=== PATIENT | male | born 1955 | race Caucasian/White ===

== ENCOUNTER 2020-06-16 09:28 | Day surgery (SDC) | payer OTHER ==
[~2020-06-16] VITALS: Ht 185.4 cm; Wt 86.2 kg
[2020-06-16] MEDS ORDERED: fentaNYL citrate 0.05 MG/ML VIAL ONE (10:51)
[2020-06-16] MEDS: fentaNYL citrate 0.05 MG/ML VIAL IVP ONE (11:06)
[2020-06-16] MEDS: LIDOCAINE 2% 100 MG/5 ML UJET TP ONE (11:07)
== END 2020-06-16 13:40 | disposition home or self-care (01) ==
LOC: MDS 09:28 → MMU 09:30 → MDS 13:40
PROVIDERS: ATTEND Internal Medicine Gastroenterology
DX: R19.5 Other fecal abnormalities (principal); K52.9 Noninfective gastroenteritis and colitis, unspecified; E11.9 Type 2 diabetes mellitus without complications; Z79.4 Long term (current) use of insulin; Z79.899 Other long term (current) drug therapy
CPT/HCPCS: 45380; 88305; J3010